=== PATIENT | female | born 1985 | race Caucasian/White ===

== ENCOUNTER 2023-05-19 14:53 | Inpatient (IN) | payer OTHER, SELFPAY ==
[2023-05-19] VITALS (42 sets, daily range): BP systolic 107–171; BP diastolic 58–105; PULSE 81–126; RESP 16–20; TEMP 34.8–37.1; O2SAT 97–98; BMI 37.9
--- NOTE | 2023-05-19 13:46 | PC.NURSE ---
Attempted to start 18g IV in patient's right hand, IV blew and a golf ball sized area of swelling was noted immediently to the area. Patient given ice pack.
[2023-05-19 13:51] LABS: Basophils % 0.3 %; Eosinophils # 0.1 10^3/uL (0.0-0.8); Eosinophils % 0.6 %; Hematocrit 35.2 % (36-47); Lymphocytes # 2.2 10^3/uL (0.8-4.8); Lymphocytes % 22.1 %; Mean Corpuscular HGB Conc 33.5 g/dL (30-55); Mean Corpuscular Hemoglobin 30.3 pg (27-33); Mean Corpuscular Volume 90.3 fl (85-98); Mean Platelet Volume 11.4 fL (7.4-10.4); Monocytes # 0.7 10^3/uL (0.2-0.9); Monocytes % 7.3 %; Nucleated Red Blood Cells % 0 %; Platelet Count 241 10^3/cmm (157-399); Red Cell Distribution Width 14.2 % (12.1-15.1); White Blood Count 10.14 10^3/uL (3.29-11.43)
[2023-05-19 14:09] LABS: Urine Creatinine 34 mg/dL (28-217)
[2023-05-19 14:10] LABS: UPRO/UCREAT Ratio 0.88 mg/mg CR; Urine Protein Random 30 mg/dL
[2023-05-19 14:23] LABS: Add Urine Microscopic? YES; Bacteria Urine 1+ /hpf; Bilirubin Urine Neg (Negative); Blood Urine 2+ (Negative); Glucose Urine UA Norm (Normal); Ketones Urine Negative (Negative); Leukocyte Esterase Urine Negative (Negative); Nitrate Urine Negative (Negative); Protein Urine Trace (Negative); RBC Urine 0-4 /hpf (0-2); Specific Gravity, Urine 1.005 (1.005-1.030); Squamous Epithelial Cell Urine 25-40 /hpf (0-5); Urine Appearance Hazy (CLEAR); Urine Color Yellow (Yellow); Urobilinogen Urine Norm (Negative); WBC Urine 0-4 /hpf (0-5); pH Urine 6 (5-7)
[2023-05-19 14:24] LABS: Add Urine Culture? No
[2023-05-19 14:39] LABS: Alanine Aminotransferase 15 U/L (0-33); Albumin Level 3.3 g/dL (3.5-5.2); Alkaline Phosphatase 153 U/L (35-105); Aspartate Amino Transferase 29 U/L (0-32); Blood Urea Nitrogen 15 mg/dL (6-20); Calcium 10.1 mg/dL (8.5-10.5); Carbon Dioxide 21 mmol/L (22-29); Chloride 100 mmol/L (98-107); Globulin 4.1 g/dL (1.3-4.6); Glomerular Filtration Rate 81.2 mL/min (90-130); Glucose 72 mg/dL (65-115); Osmolality Calculated 275 mOsm/kg (285-295); Sodium 133 mmol/L (136-145); Total Bilirubin 0.2 mg/dL (0.15-1.2); Total Protein 7.4 g/dL (6.6-8.7); Uric Acid 6.9 mg/dL (2.4-5.7)
[2023-05-19 14:42] LABS: Anion Gap 16.1 (5-19); Potassium 4.1 mmol/L (3.5-5.1)
[2023-05-19] MEDS: hyDROXYzine 25 mg Capsule 50 MG PO (15:14)
[2023-05-19] MEDS: labetalol 5 mg/mL SDV 20mL 20 MG IVP (15:14)
[2023-05-19] MEDS: dextrose 5%-lactated ringers 1,000 ML 125 ML IV (15:20)
[2023-05-19] MEDS: alum-mag-hydroxide-sime 30 mL UDC PO (15:24)
[2023-05-19] MEDS: ampicillin 2,000 MG in sodium chloride 0.9% (plus) 50 ML 100 MG IV (16:05)
[2023-05-19] MEDS: miSOPROStol 100 mcg tablet 25 MCG VAGINAL (16:06)
[2023-05-19] MEDS: lactated ringers 1,000 ML 999 ML IV (18:38)
[2023-05-19] MEDS: oxytocin 30 UNIT/500 ML BAG 600 UNIT IV (19:03)
[2023-05-19] MEDS: miSOPROStol 200 mcg Tablet 800 MCG PR (19:04)
[2023-05-19] MEDS: fentaNYL 50 mcg/mL INJ 2mL IVP (19:04)
--- NOTE | 2023-05-19 19:17 | PM.OPHPUD ---
Labor & Delivery H&P Update Date of Procedure: May 19, 2023 Date H&P Performed: 05/19/23 Admission Diagnosis: 38-year-old 2 para 1-0-0-1 at 38 weeks and 5 days presenting to the hospital with preeclampsia for induction Planned procedure: Vaginal delivery Other information: The patient is a otherwise healthy 38-year-old female who presented to my office today for routine visit. At the part of her visit she was noted to have elevated blood pressures. After blood pressures were checked multiple times she continued to have elevated blood pressures and as result she was brought to the OB department for further evaluation. A preeclamptic profile was performed and her protein creatinine ratio was found to be 0.8. She is also noted to have an elevated uric acid. Her blood pressures continue to be elevated in the hospital. As result the decision was made to proceed with induction. Cytotec 25 mcg per vagina was placed. GBS protocol was initiated. The patient's was unremarkable. She she had had transiently elevated blood pressures previously, but otherwise had no symptoms consistent with preeclampsia. Her labs were as follows. Her blood type is O+. Her antibody screen was negative. She passed her 3-hour glucose screen. She was GBS positive. She is rubella nonimmune. The remainder of her infectious disease profile was within normal limits. She was noted to have a low-lying anterior placenta. It was 2 cm away from the os based on an ultrasound done in the third trimester. Related Problem List Diagnoses (1) 38 weeks gestation of : (2) Preeclampsia: (3) Low lying placenta nos or without hemorrhage, third trimester: A&P Assessment and plan (1) 38 weeks gestation of : We will proceed with induction due to preeclampsia. The patient is very anxious and her blood pressures have likely been partially elevated as result of her anxiety. If we see persistent blood pressures in the severe range, we will consider magnesium. Status: Acute (2) Preeclampsia: Status: Acute (3) Low lying placenta nos or without hemorrhage, third trimester: Status: Acute
--- NOTE | 2023-05-19 19:25 | P.PCNOB_ITS ---
Delivery Note: Date of delivery: May 19, 2023 Pre-delivery diagnoses: 1. 38-year-old 2 para 1-0-0-1 a t 38 weeks and 5 days 2. Preeclampsia 3. Low-lying placenta Post-delivery diagnoses: Status post spontaneous vaginal delivery Procedure: Spontaneous vaginal delivery Delivering Physician: Ugo Hernandez Estimated blood loss (mL): 300 Pre-Delivery Course: The patient presented to the hospital for induction due to preeclampsia. She was placed on Cytotec 25 mcg x 1. She was started on group B strep protocol. She had spontaneous rupture of membranes about 2 and half hours after Cytotec w as placed. She then rapidly progressed to complete. Delivery: DELIVERY: The patient progressed to complete without difficulty. She delivered a female with a weight of 5 pounds 14 ounces with Apgars of 6, 9. The baby was delivered from the BALAJI position and placed on the mother's abdomen. The cord was then clamped and cut. There was no nuchal cord. There was terminal meconium. The placenta and 3 vessel cord were delivered intact shortly thereafter. The perineum and vaginal vault were carefully examined. No lacerations were noted. Both the mother and the baby were in stable condition. The patient did have some persistent vaginal bleeding. Pitocin was open wide open. A manual massage of the uterus was performed. Cytotec 800 mcg was placed per rectum. Her bleeding resolved without further intervention. Post-Delivery Status: Good A&P Assessment and plan (1) Spontaneous vaginal delivery: Will continue to monitor the patient's blood pressures and any progression of her preeclampsia. We will also be more mindful of her risk of hemorrhage due to her low-lying placenta. (2) Preeclampsia: (3) 38 weeks gestation of : Coding Level of Care Code Acute Code for Chg Fwd Diagnoses Spontaneous vaginal delivery O80 Preeclampsia O14.90 38 weeks gestation of Z3A.38
[2023-05-19] MEDS: ibuprofen 800 mg tablet PO (21:45)
[2023-05-19] MEDS: lanolin oint 7 gm 1 APPLIC TOPICAL (21:45)
[2023-05-19] MEDS: benzocaine-menthol 78 gm Canister 1 SPRAY TOPICAL (21:46)
[2023-05-20 00:45] VITALS: BP 132/88; PULSE 97; O2SAT 98
[2023-05-20 02:45] VITALS: BP 103/59
[2023-05-20] MEDS: acetaminophen 325 mg Tablet 650 MG PO (04:01)
[2023-05-20 05:53] LABS: Hematocrit 28.4 % (36-47); Mean Corpuscular HGB Conc 33.1 g/dL (30-55); Mean Corpuscular Hemoglobin 30.3 pg (27-33); Mean Corpuscular Volume 91.6 fl (85-98); Mean Platelet Volume 10.9 fL (7.4-10.4); Platelet Count 199 10^3/cmm (157-399); Red Cell Distribution Width 14.3 % (12.1-15.1); White Blood Count 10.29 10^3/uL (3.29-11.43)
--- NOTE | 2023-05-20 07:36 | P.PN_ITS ---
[employer] Subjective 2 Subjective: Interval history: The patient is doing well. Her bleeding has been minimal. She has breast-fed well. Her pain is well-controlled. Labor: Station: 0 Amniotic Membrane Status: Ruptured Monitor Mode: Palpation Contraction Pattern: Regular Status: Category I Vitals/I&O/Wt Last Vital Signs Temp 94.6 F L 05/19/23 18:41 Pulse 97 05/20/23 00:45 Resp 19 H 05/19/23 22:45 BP 103/59 05/20/23 02:45 Pulse Ox 98 05/20/23 00:45 O2 Del Method Room Air 05/19/23 15:43 05/19/23 05/20/23 05/20/23 22:59 06:59 14:59 Intake Total 258.333 / 258.333 Output Total 1150 / 1150 Balance 258.333 / 258.333 -1150 / -891.667 Weight last 48 hrs Weight 214 lb Physical Exam 2 Narrative: The patient is alert. She appears comfortable. Her heart has a regular rate and rhythm with no murmurs appreciated. Lungs are clear to auscultation bilaterally. Her fundus is firm and below the umbilicus. Data 05/20/23 05:47 05/19/23 14:15 A&P Assessment and plan (1) Spontaneous vaginal delivery: The patient appears to be doing well. Her bleeding has been limited. Her blood pressures are markedly improved. I anticipate routine care. (2) 38 weeks gestation of : (3) Preeclampsia: Attestations 2 Medical Necessity Statement*: I anticipate routine care. We will continue to monitor for signs of preeclampsia Coding Level of Care Code Acute Code for Chg Fwd Diagnoses Spontaneous vaginal delivery O80 38 weeks gestation of Z3A.38 Preeclampsia O14.90
[2023-05-20] MEDS: prenatal vitamin Capsule 1 CAP PO (09:18)
[2023-05-20] MEDS: ibuprofen 800 mg tablet PO ×3 (09:18→22:17)
[2023-05-20] MEDS: docusate sodium 100 mg Capsule PO (09:19)
[2023-05-20 09:24] VITALS: BP 124/89; PULSE 70; RESP 17; TEMP 36.7
[2023-05-20 16:50] VITALS: BP 107/85; PULSE 72; RESP 17; TEMP 36.8
[2023-05-20 22:49] VITALS: BP 121/74; PULSE 96; RESP 18; TEMP 36.8
[2023-05-21 03:37] VITALS: BP 127/70; PULSE 100; RESP 16; TEMP 36.7; O2SAT 97
[2023-05-21] MEDS: HYDROcodone-acetaminophen 5-325 mg Tablet PO (04:48)
[2023-05-21] MEDS: ibuprofen 800 mg tablet PO ×2 (09:12→15:51)
[2023-05-21] MEDS: prenatal vitamin Capsule 1 CAP PO (09:12)
[2023-05-21] MEDS: escitalopram 10 mg Tablet PO (09:13)
[2023-05-21] MEDS: docusate sodium 100 mg Capsule PO (09:13)
[2023-05-21 10:08] VITALS: BP 140/92; PULSE 107; RESP 16; TEMP 36.8; O2SAT 98
[2023-05-21 13:45] VITALS: BP 137/83; PULSE 107
--- NOTE | 2023-05-21 13:55 | P.DS_ITS ---
Discharge Providers GR[employer]ISHER Date of Admission: 05/19/23 14:53 Date of Discharge: 05/21/23 Attending Provider at Admission: Ugo Hernandez MD Attending Provider at Discharge: Ugo Hernandez MD Diagnoses at Discharge Discharge Diagnosis (1) Spontaneous vaginal delivery: Status: Acute (2) 38 weeks gestation of : Status: Acute (3) Preeclampsia: Status: Acute Reason for Visit Reason for Visit: BP monitoring Hospital Course Hospital Course The patient presented to the hospital for induction due to elevated blood pressure in the office. Her pre-eclamptic profile revealed that she did have pre-eclampsia. She was placed on Cytotec 25 mcg x 1. She rapidly progressed to complete and had an unremarkable delivery of a healthy appearing term female infant. Prior to delivery she did have some elevated blood pressures, including some in the severe range while she was very anxious and in pain. She had no other symptoms of pre-eclampsia. Her course was unremarkable. She diuresed well. Her pain was well-c ontrolled. She breast-fed well. Her bleeding was within normal limits. There were no concerns. Her blood pressures improved post delivery. She did still have some occasional blood pressures that were mildly elevated. Information Peripartum Data: Infant Delivery Method: Vaginal Physical Exam Narrative: The patient is alert. She appears comfortable. Her heart has a regular rate and rhythm with no murmurs appreciated. Lungs are clear to auscultation bilaterally. Her fundus is firm and below the umbilicus. Discharge Data Studies Completed and Pending Laboratory Results WBC 10.29 10^3/uL (3.29-11.43) 05/20/23 05:47 RBC 3.10 10^6/uL (3.85-5.65) L 05/20/23 05:47 Hgb 9.40 g/dL (11.27-16.99) L 05/20/23 05:47 Hct 28.4 % (36-47) L 05/20/23 05:47 MCV 91.6 fl (85-98) 05/20/23 05:47 MCH 30.3 pg (27-33) 05/20/23 05:47 MCHC 33.1 g/dL (30-55) 05/20/23 05:47 RDW 14.3 % (12.1-15.1) 05/20/23 05:47 Plt Count 199 10^3/cmm (157-399) 05/20/23 05:47 MPV 10.9 fL (7.4-10.4) H 05/20/23 05:47 Neut % (Auto) 69.0 % 05/19/23 13:25 Lymph % (Auto) 22.1 % 05/19/23 13:25 [place] % (Auto) 7.3 % 05/19/23 13:25 Eos % (Auto) 0.6 % 05/19/23 13:25 Baso % (Auto) 0.3 % 05/19/23 13:25 Neut # (Auto) 7.00 10^3/uL (1.8-7.7) 05/19/23 13:25 Lymph # (Auto) 2.2 10^3/uL (0.8-4.8) 05/19/23 13:25 [place] # (Auto) 0.7 10^3/uL (0.2-0.9) 05/19/23 13:25 Eos # (Auto) 0.1 10^3/uL (0.0-0.8) 05/19/23 13:25 Baso # (Auto) 0.0 10^3/uL (0.0-0.1) 05/19/23 13:25 Nucleated RBC % (auto) 0 % 05/19/23 13:25 Nucleated RBCs # 0.0 /100WBC 05/19/23 13:25 Sodium 133 mmol/L (136-145) L 05/19/23 14:15 Potassium 4.1 mmol/L (3.5-5.1) 05/19/23 14:15 Chloride 100 mmol/L (98-107) 05/19/23 14:15 Carbon Dioxide 21 mmol/L (22-29) L 05/19/23 14:15 Anion Gap 16.1 (5-19) 05/19/23 14:15 BUN 15 mg/dL (6-20) 05/19/23 14:15 Creatinine 0.8 mg/dL (0.5-0.9) 05/19/23 14:15 GFR Calculation 81.2 mL/min (90-130) L 05/19/23 14:15 Glucose 72 mg/dL (65-115) 05/19/23 14:15 Calculated Osmolality 275 mOsm/kg (285-295) L 05/19/23 14:15 Uric Acid 6.9 mg/dL (2.4-5.7) H 05/19/23 14:15 Calcium 10.1 mg/dL (8.5-10.5) 05/19/23 14:15 Total Bilirubin 0.2 mg/dL (0.15-1.2) 05/19/23 14:15 AST 29 U/L (0-32) 05/19/23 14:15 ALT 15 U/L (0-33) 05/19/23 14:15 Alkaline Phosphatase 153 U/L (35-105) H 05/19/23 14:15 Total Protein 7.4 g/dL (6.6-8.7) 05/19/23 14:15 Albumin 3.3 g/dL (3.5-5.2) L 05/19/23 14:15 Globulin 4.1 g/dL (1.3-4.6) 05/19/23 14:15 Urine Color Yellow (Yellow) 05/19/23 13:25 Urine Appearance Hazy (CLEAR) A 05/19/23 13:25 Urine pH 6 (5-7) 05/19/23 13:25 Ur Specific [place] 1.005 (1.005-1.030) 05/19/23 13:25 Urine Protein Trace (Negative) 05/19/23 13:25 Urine Glucose (UA) Norm (Normal) 05/19/23 13:25 Urine Ketones Negative (Negative) 05/19/23 13:25 Urine Blood 2+ (Negative) H 05/19/23 13:25 Urine Nitrate Negative (Negative) 05/19/23 13:25 Urine Bilirubin Neg (Negative) 05/19/23 13:25 Urine Urobilinogen Norm mg/dL (Negative) 05/19/23 13:25 Ur Leukocyte Esterase Negative (Negative) 05/19/23 13:25 Urine RBC 0-4 /hpf (0-2) H 05/19/23 13:25 Urine WBC 0-4 /hpf (0-5) H 05/19/23 13:25 Ur Squamous Epith Cells 25-40 /hpf (0-5) H 05/19/23 13:25 Amorphous Sediment Not Reportable 05/19/23 13:25 Urine Bacteria 1+ /hpf (NONE) H 05/19/23 13:25 U Random Total Protein 30 mg/dL 05/19/23 13:25 Urine Creatinine 34 mg/dL (28-217) 05/19/23 13:25 Protein/Creatinin Ratio 0.88 mg/mg CR 05/19/23 13:25 Blood Type O Positive 05/19/23 15:59 Rho(D) Type Rh positive 05/19/23 15:59 Antibody Screen Negative 05/19/23 15:59 Vitals Last Vital Signs Temp 98.3 F 05/21/23 10:08 Pulse 107 H 05/21/23 13:45 Resp 16 05/21/23 10:08 BP 137/83 05/21/23 13:45 Pulse Ox 98 05/21/23 10:08 O2 Del Method Room Air 05/21/23 13:45 Results Labs OB ([facility]): Obstetrics 02/18/23 Blood Type O Positive 05/19/23 Antibody Screen Negative 05/19/23 Hct 28.4 % (36-47) L 05/20/23 Hgb 9.40 g/dL (11.27-16.99) L 05/20/23 Rho(D) Type Rh positive 05/19/23 Plt Count 199 10^3/cmm (157-399) 05/20/23 Uric Acid 6.9 mg/dL (2.4-5.7) H 05/19/23 Discharge Plan Discharge Patient Disposition: Home Condition: Stable Prescriptions: New ibuprofen 800 mg Tablet 800 mg PO TID Qty: 45 0RF Continued [id number] 1 mg Tablet 1 tab PO DAILY Lexapro 10 mg Tablet 10 mg PO DAILY Discharge Orders: Discharge Order (Routine); Ordered 05/21/23 Ordered By: Ugo Hernandez Referrals: Ugo Hernandez MD [Physician] - 6 Weeks Discharge Diet: Usual diet Discharge Activity: Limit activity as instructed Patient Instructions: Depression (DC), Bleeding (DC), Preeclampsia and Eclampsia After Delivery (GEN), Hemorrhage (DC), OB Discharge Report, OB Food/Drug Interaction Guide, OB Care at Home, Opioid Safety, OB Vaginal Deliveries Discharge Attestations [employer]ISHER Time Spent in Discharge Care*: less than 30 min Coding Level of Care Code Acute Code for Chg Fwd Diagnoses Spontaneous vaginal delivery O80 38 weeks gestation of Z3A.38 Preeclampsia O14.90
[2023-05-21 16:58] VITALS: BP 133/84; PULSE 108; RESP 17; TEMP 36.8
[2023-05-21] MEDS: measles,mumps,rubella pf Vial (w/diluent) 0.5 ML SUBCUT (18:35)
[2023-05-21 18:45] VITALS: BP 147/88; PULSE 108; RESP 18; TEMP 36.5
[2023-05-21 19:05] VITALS: BP 147/88; PULSE 108; RESP 18; TEMP 36.5
== END 2023-05-21 19:05 | disposition home or self-care (01) | DRG 807 ==
LOC: OPOB 14:53 → OBGYN 14:53
PROVIDERS: Admitting Provider Family Medicine; Visit Provider Family Medicine
DX: O14.94 Unspecified pre-eclampsia, complicating childbirth (principal); Z37.0 Single live birth; O77.0 Labor and delivery complicated by meconium in amniotic fluid; O99.824 Streptococcus B carrier state complicating childbirth; O44.43 Low lying placenta NOS or without hemorrhage, third trimester; Z3A.38 38 weeks gestation of pregnancy; Z23 Encounter for immunization
CPT/HCPCS: 36415; 59025; 59409; 80053; 81001; 82570; 84156; 84550; 85025; 85027; 86850; 86900; 90471; 90707; 96374; 98960; 99211; J0290; J2590; J3010; J3490; J7120; J7121

== ENCOUNTER 2025-01-05 10:31 | Outpatient (CLI) | payer OTHER, SELFPAY ==
--- NOTE | 2025-01-05 11:00 | MR_ITS ---
WS: [id number] MRI LEFT KNEE NONCONTRAST TECHNIQUE: Axial PD, coronal PD fat sat, coronal PD, sagittal PD, and sagittal PD fat-sat images obtained. CLINICAL INFORMATION: tibial Plateau Fracture COMPARISON: None. FINDINGS: Distal quadriceps and patella tendons are intact. Hypertrophic patella. Edema within the lateral femoral condyle and posterolateral tibial plateau worse involving the femoral condyle due to recent trauma with contusion. Probably tiny nondisplaced fracture involving the posterolateral tibial plateau. Small amount of contusion in the posterior medial tibial plateau. High-grade full-thickness tear of the ACL with no normal fibers visualized. Discontinuity of the ACL. PCL is intact. ACL contusion pattern described above. a Normal lateral meniscus. Tiny horizontal tear involving the posterior horn medial meniscus extending to the peripheral articular surface. Slight peripheral extrusion of the medial meniscus Mild chondromalacia patella. Normal lateral collateral ligament. Medial collateral ligament appears intact. Fluid and edema along the superficial and deep fibers of the MCL compatible with grade 1 injury. Small lobulated popliteal cyst measuring 1.3 x 0.7 cm MR/MR knee LT wo con* [id number] IMPRESSION: 1. High-grade complete tear of the ACL. 2. Typical ACL contusion pattern described above. 3. Probably tiny nondisplaced fracture of the posterolateral tibial plateau in the area of contusion 4. Grade 1 injury of the MCL. 5. Tiny horizontal tear posterior horn medial meniscus extending to the periph eral articular surface 6. Mild chondromalacia patella. 7. Small lobulated popliteal cyst measuring 1.3 x 0.7 cm Outbridge grading: grade II: blister-like swelling/fraying of articular cartila ge extending to surface
== END 2025-01-05 10:32 | disposition home or self-care (01) ==
LOC: RAD 10:34
PROVIDERS: PCP Family Medicine; Visit Provider Orthopaedic Surgery
DX: S82.142A Displaced bicondylar fracture of left tibia, initial encounter for closed fracture (principal); X58.XXXA Exposure to other specified factors, initial encounter
CPT/HCPCS: 73721

== ENCOUNTER 2025-01-24 06:49 | Day surgery (SDC) | payer OTHER, SELFPAY ==
[2025-01-24] VITALS (12 sets, daily range): BP systolic 128–147; BP diastolic 76–97; PULSE 99–128; RESP 14–17; TEMP 36.3–37.7; O2SAT 92–98; BMI 30.6
[2025-01-24 07:19] LABS: OR HCG Qualitative Urine Negative (Negative)
--- NOTE | 2025-01-24 08:19 | ANES.PREANE2 ---
Pre-Anesthetic Assessment Height/Weight: Height 5 ft 3 in Weight 173 lb Temp Pulse Resp BP Pulse Ox O2 Del Method 97.3 F L 99 17 140/85 98 Room Air 01/24/25 07:10 01/24/25 07:10 01/24/25 07:10 01/24/25 07:10 01/24/25 07:10 01/24/25 07:14 Preop Diagnosis: Knee pain Operation Date: 01/24/25 09:40 Proposed Procedures p LEFT Arthroscopic Knee ACL Reconstruction w/ Allograft(Left) - Kush Montes De Oca MD Was Beta Mj taken within 24 hours: N/A Was Clonidine taken within 24 hours: N/A Last intake: Intake Last Liquid Date 01/23/25 Last Liquid Time 23:30 Last Solid Date 01/23/25 Last Solid Time 23:30 Social Tobacco and No tobacco Exam alert, oriented x 3, clear to auscultation bilaterally and regular rate & rhythm Airway Submandibular: within normal limits Cervical ROM: within normal limits Mallampati: Class I Dentition: full Anesthetic Plan ASA status: 2 Anesthesia: General Other: No prior issues with anesthesia NPO since yesterday evening Current smoker GERD, diet controlled Methylphenidate for ADHD METs greater than 4 Plan for general anesthesia with possible postop nerve block Medications/Allergies Home Medications ?Medication ?Instructions ?Recorded ?Confirmed ?Last Taken ?Type ibuprofen 800 mg tablet 800 mg PO TID #45 tabs 05/21/23 01/23/25 Unknown Rx albuterol sulfate 90 mcg/actuation 2 puff inhalation Q6H PRN sob 12/21/24 01/23/25 Unknown History aerosol inhaler (Ventolin HFA) methylphenidate HCl 20 mg tablet 20 mg PO BID 12/21/24 01/23/25 01/23/25 History venlafaxine 150 mg 150 mg PO DAILY 12/21/24 01/24/25 01/24/25 History capsule,extended release 24 hr meloxicam 7.5 mg tablet 7.5 mg PO DAILY 01/16/25 01/23/25 01/03/25 History Allergies Allergy/AdvReac Type Severity Reaction Status Date / Time No Known Allergies Allergy Verified 01/16/25 08:38 Current Medications Generic Name Dose Route Start Last Admin Trade Name Freq PRN Reason Stop Dose Admin Sodium Chloride 1,000 mls @ 30 mls/hr 01/24/25 07:00 01/24/25 07:31 Sodium Chloride 0.9% IV 01/25/25 06:59 30 mls/hr .Q24H LIZETTE Administration PFSH Anesthesia Family History Father Liver cancer Grandfather Diabetes mellitus, type 2 Social History Smoking and tobacco/nicotine status: current some day tobacco/nicotine user Second hand smoke exposure: No Alcohol intake: current Alcohol intake frequency: few times a week Alcohol type: hard liquor Substance/Drug Use: never
[2025-01-24] MEDS: midazolam 1 mg/mL INJ 2 mL 2 MG IVP (08:23)
[2025-01-24] MEDS: ceFAZolin 2,000 mg SDV 2000 MG IVP (09:00)
--- NOTE | 2025-01-24 09:01 | W.PM.OPSUD ---
Surgery/Procedure H&P Update DATE OF PROCEDURE: January 24, 2025 DATE H&P PERFORMED: 01/16/25 H&P UPDATE INFORMATION: I have reviewed H&P completed within last 30 days and I have examined patient prior to procedure PREOP DIAGNOSIS: Knee pain with torn ACL PLANNED PROCEDURE: Operation Date: 01/24/25 09:40 Proposed Procedures p LEFT Arthroscopic Knee ACL Reconstruction w/ Allograft(Left) - Kush Montes De Oca MD
--- NOTE | 2025-01-24 10:41 | P.OP_ITS ---
Operative Report Date of procedure: January 24, 2025 Surgeon: Kush Montes De Oca MD Procedure: Pre-op diagnosis: Internal derangement left knee possible ACL tear Postoperative diagnosis: Torn posterior horn medial meniscus with torn anterior cruciate ligament Procedure: Diagnostic left knee arthroscopy, grade II chondromalacia IT groove, this debris demonstrated cartilage space mechanical shaver. Medial gutter was clear medial compartment demonstrated a small tear in the posterior horn medial meniscus. Partial medial meniscectomy, debridement of ACL stump, ACL reconstruction using allograft Surgeon: Kush Montes De Oca MD [employer] Custodian: MANGO Vasquez's assistance was necessary for positioning the patient, assistance during procedure, wound closure, dressing placement Anesthesia: General EBL 10 cc Indications: Laisha is a 39-year-old white female who was doing box jumps for exercise when she came down and stumbled injuring her left knee. Said pains and instability in it since that time. Subsequently, after orthopedic evaluation determining that she may have an ACL rupture and MRI was obtained demonstrating the ACL tear as well as a possible posterior horn medial meniscal tear. Patient was then offered a diagnostic knee arthroscopy with all indicated procedures including ACL reconstruction. Graft choices were discussed in length and she elected to do an allograft at this time. Procedure: After obtaining her consent patient taken to the operative room placed Table supine position general segments are. Once good anesthesia was achieved left legs placed in leg lai from the bed was dropped. Right leg padded appropriately. Left leg was prepped and draped usual fashion. After surgical timeout standard anterior medial lateral portals were made #11 blade. Camera cannula was placed to the lateral portal and toward the knee was undertaken. The posterior patella was in good repair with only some slight grade I chondromalacia over the medial facet. There was grade II chondromalacia of the central IT groove. This was debrided down to stable cartilaginous base with mechanical shaver. Medial gutter was clear medial compartment was had good articular cartilage. There is a small tear in the posterior horn medial meniscus that was to be of small hand instruments and mechanical shaver. Intercondylar notch demonstrated torn anterior crucial ligament with a stump laying anteriorly and on the surface of the tibia. Lateral compartment demonstrated intact meniscus and articular cartilage. At this point using femoral probe as well as mechanical shaver ACL was debrided out of the i ntercondylar notch as well as other soft tissues. At this point the graft had been thawed on the back table it was sized to size 10 drill guide. This is a speed graft that was already sutured at this time. Anterior incision made over the pes anserinus sharp dissection taken down down his subcutaneous tissue electrocautery used to hemostasis. Dissection was taken down to the periosteum of the tibia. Cannulas placed back into the knee as well as the help guide through the medial portal into the intercondylar notch directly visualized. Leg was brought out to full extension guidepin was placed within the help guide and adjusted drill guide was then placed on up through the anterior incision of the tibia down to the bone and guidepin was placed up through there. L guide was removed the pin was tapped on up into the intercondylar notch. It was demonstrated to be slightly medial and therefore second pin was placed using a AMBER guide again just slightly to 1 mm lateral to it. First pin was removed. Tibial pin was then reamed over a size 10 mm reamer. Mechanical shaver was used to remove all bone fragments and cartilage fragments from the drill holes. Impingement dinora was then placed up to the tibial hole and intercondylar notch was checked for any impingement. Small 5.5 bur was then used to do a wall plasty on the lateral wall of the intercondylar notch until no impingement was obtained. At this point a size 11 femoral reaming device was placed up through the tibial tunnel to the posterior lateral aspect of the intercondylar notch and positioned appropriately guidepin was placed up into the lateral femur. This was then probed with a small nerve probe to ensure that there is bone wall posteriorly. This is then reamed to a size 10 mm reamer to the depth of 30 mm. Marky was then placed on up through the tibial and femoral tunnels to ensure good bony fernandez on both tunnels which was observed. At this point graft was placed into the aper fix femoral fixation device and locked in place. Watermark was placed on it to no depth of the graft. This is then driven on up through the tibial tunnel into the femoral tunnel and impacted. Locking device was engaged at this point with good fixation. Guide handle was removed. Attention was placed onto the sutures of the graft demonstrating good fixation. At this point a guidepin was placed up through the tibial tunnel between the graft ends. A perfect sleeve was then placed up over this and while the graft was under tension compression screws placed up into the tibial tendon with good fixation. ACL was visualized internally with good placement and good mobility and a negative Emmy's. Excess graft was cut off at this point. Deep structures were reapproximated 0 Vicryl. Sutures. Subcutaneous tissues was reapproximated 0 Vicryl interrupted sutures. Skin was closed with skin julianne. Wounds were injected with Marcaine postoperatively for postoperative pain management. Wounds are clean and dry dressed with Xeroform gauze sterile gauze dressing Kerlix wrap and Wilfrido wrap for compression. Patient was awakened transferred to cover room stable condition
[2025-01-24] MEDS: fentaNYL 50 mcg/mL INJ 2mL IVP (11:23)
--- NOTE | 2025-01-24 11:26 | ANES.PROC ---
Anesthesia Procedures Procedure/Date: 01/24/25 Left adductor canal block for postoperative pain control Nerve Block ^: Nerve Block 1: Main Anesthesia: general anesthesia Time Out Performed: Yes Consent: requested by attending/covering physician and from patient Laterality: Left Nerve block location: adductor canal Anesthesia monitors applied: pulse oximetry, EKG, BP cuff and oxygen Nerve block position: supine Anesthetic Used: ropivicaine 0.5% Amount of anesthesia used (mL): 20 Ultrasound used to: recognize landmarks Nerve Stimulator Used?: No Interscalene/Femoral BLK: other needle (pjunk 4inch) Injection: neg aspiration of heme Patient Tolerated Procedure: well Complications: none
--- NOTE | 2025-01-24 11:41 | ANE.PACU2 ---
Inpatient post-anesthesia follow up: Airway intact: Yes Vital signs: Temperature 98.7 F Pulse Rate 107 Respiratory Rate 17 Blood Pressure 147/80 Pulse Oximetry 95 Oxygen Delivery Me thod Room Air Oxygen Flow Rate Fraction of Inspir ed Oxygen Hydration adequate: Yes Nausea and vomiting: No Pain level: 1 Mental status: Baseline
== END 2025-01-24 12:39 | disposition home or self-care (01) ==
PROVIDERS: PCP Family Medicine; Visit Provider Orthopaedic Surgery
PROC: (CPT 27407; principal; 2025-01-24 09:40)
PROC: (CPT 29867; 2025-01-24 09:40)
DX: M23.92 Unspecified internal derangement of left knee (principal); S83.242A Other tear of medial meniscus, current injury, left knee, initial encounter; X58.XXXA Exposure to other specified factors, initial encounter; K21.9 Gastro-esophageal reflux disease without esophagitis; F17.200 Nicotine dependence, unspecified, uncomplicated
CPT/HCPCS: 29867; 29881; 64447; 81025; C1762; C1763; J0131; J0690; J1100; J1171; J1885; J2250; J2405; J2704; J3010; J7030; J9999

== ENCOUNTER 2025-02-19 11:25 | Outpatient (RCR) | payer OTHER, SELFPAY | END 2025-03-04 23:59 | disposition home or self-care (01) | LOC: SPT 11:25 | PROVIDERS: PCP Family Medicine; Visit Provider Orthopaedic Surgery | DX: Z98.890 Other specified postprocedural states (principal) | CPT/HCPCS: 97110; 97161 ==

== ENCOUNTER 2025-03-05 05:00 | Outpatient (RCR) | payer OTHER, SELFPAY | END 2025-04-04 23:59 | disposition home or self-care (01) | LOC: SPT 05:00 | PROVIDERS: PCP Family Medicine; Visit Provider Orthopaedic Surgery | DX: Z98.890 Other specified postprocedural states (principal) | CPT/HCPCS: 97110 ==